=== PATIENT | male | born 1975 | race Caucasian/White ===

== ENCOUNTER 2019-07-06 20:05 | Emergency (ER) | payer MEDICAID ==
[~2019-07-06] VITALS: Ht 172.7 cm; Wt 68.5 kg
[2019-07-06 20:19] VITALS: BP_SYST 133
[2019-07-06] MEDS ORDERED: DEXAMETHASONE SOD PHOSPHATE 10 MG/ML VIAL IM ONE (20:45)
[2019-07-06] MEDS ORDERED: KETOROLAC TROMETHAMINE 60 MG/2 ML VIAL IM ONE (20:45)
[2019-07-06 22:00] VITALS: BP_SYST 128
[2019-07-06] MEDS ORDERED: MORPHINE 2 MG/ML INJ. SYRINGE IM ONE (22:00)
== END 2019-07-06 22:00 | disposition home or self-care (01) ==
LOC: EDBD 20:05 → SED 20:05
DX: M54.31 Sciatica, right side (principal)
CPT/HCPCS: 96372; 99284; J1100; J1885; J2270

== ENCOUNTER 2020-12-06 11:04 | Emergency (ER) | payer MEDICAID ==
[~2020-12-06] VITALS: Ht 172.7 cm; Wt 70.3 kg
[2020-12-06 11:20] VITALS: BP_SYST 92
[2020-12-06] MEDS ORDERED: IBUP-1969 PO (12:40)
[2020-12-06] MEDS ORDERED: CYCL10TA24 PO (12:40)
[2020-12-06 13:21] VITALS: BP_SYST 92
== END 2020-12-06 12:45 | disposition home or self-care (01) ==
LOC: SED 11:04
DX: S16.1XXA Strain of muscle, fascia and tendon at neck level, initial encounter (principal); Z88.0 Allergy status to penicillin; Z79.899 Other long term (current) drug therapy; V49.49XA Driver injured in collision with other motor vehicles in traffic accident, initial encounter; Y93.89 Activity, other specified; Y92.89 Other specified places as the place of occurrence of the external cause; Y99.8 Other external cause status
CPT/HCPCS: 99283

== ENCOUNTER 2023-12-04 00:08 | Emergency (ER) | payer MEDICAID ==
[~2023-12-04] VITALS: Ht 175.3 cm; Wt 70.3 kg
[~2023-12-04 00:08] MED LIST: CYCL10TA24 PO; IBUP-1969 PO
[2023-12-04 00:26] VITALS: BP_SYST 103; PULSE 78; RESP 17; TEMP 97.6; O2SAT 97
[2023-12-04] MEDS: KETOROLAC TROMETHAMINE 30 MG VIAL IM ONE (02:42)
[2023-12-04 02:57] LABS: ERYTHROCYTE SEDIMENTATION RATE 12 MM/HR (0-15)
[2023-12-04 02:59] LABS: BASOPHILS % (AUTO) 0.2 % (0.0-2.0); EOSINOPHILS # (AUTO) 0.2 K/uL (0.0-0.4); EOSINOPHILS % (AUTO) 2.2 % (0.0-4.0); HEMATOCRIT 36.2 % (36-54); HEMOGLOBIN 12.4 g/dL (14.0-18.0); LYMPHOCYTES # (AUTO) 1.5 K/uL (1.0-5.5); LYMPHOCYTES % (AUTO) 20.3 % (20.5-51.5); MEAN CORPUSCULAR HEMOGLOBIN 33 pg (27-31); MEAN CORPUSCULAR HGB CONC 34 % (32-36); MEAN CORPUSCULAR VOLUME 97 fL (79.0-98.0); MONOCYTES # (AUTO) 0.6 K/uL (0.0-1.0); MONOCYTES % (AUTO) 8.8 % (1.7-9.3); NEUTROPHILS % (AUTO) 68.5 % (40.0-70.0); PLATELET COUNT (AUTO) 243 K/uL (130-430); RED BLOOD CELL COUNT(AUTO) 3.74 MIL/uL (4.2-6.2); RED CELL DISTRIBUTION WIDTH 13.2 % (9.0-15.0); WHITE BLOOD COUNT (AUTO) 7.2 K/uL (4.8-10.8)
[2023-12-04 03:34] LABS: ALBUMIN 3.6 g/dL (3.4-4.8); CALCIUM 8.4 mg/dL (8.4-11.0); CREATININE 1.06 mg/dL (0.55-1.30); POTASSIUM 3.7 mmol/L (3.5-5.1); TOTAL BILIRUBIN 0.5 mg/dL (0.0-1.0); TOTAL PROTEIN, SERUM 6.6 g/dL (6.4-8.3)
[2023-12-04] MEDS ORDERED: CLIN-142 PO (03:51)
[2023-12-04] MEDS: CLINDAMYCIN HCL 150 MG CAPSULE PO ONE (03:52)
[2023-12-04] MEDS ORDERED: CLINDAMYCIN HCL 150 MG CAPSULE ONE (03:53)
[2023-12-04 04:00] VITALS: BP_SYST 108; PULSE 78; RESP 18; TEMP 97.9; O2SAT 98
== END 2023-12-04 03:56 | disposition home or self-care (01) ==
LOC: SED 00:08
DX: L03.116 Cellulitis of left lower limb (principal); Z88.0 Allergy status to penicillin; Z79.899 Other long term (current) drug therapy; Z79.2 Long term (current) use of antibiotics
CPT/HCPCS: 99284; 80053; 85025; 85651; 36415; 96372; 82397; J1885